=== PATIENT | female | born 1945 | race Caucasian/White ===

== ENCOUNTER 2021-02-25 16:49 | Emergency (ER) | payer MEDICARE, BC ==
[2021-02-25] MEDS ORDERED: Sodium Chloride 0.9% 10 ML Syringe FLUSH PRN (16:59)
[2021-02-25] MEDS: Albuterol/Ipratropium 3.0-0.5 MG/3 ML Neb Soln NEB ONE (17:00)
--- NOTE | 2021-02-25 17:08 | EDM.PDOC ---
ED HPI GENERAL MEDICAL PROBLEM - General Time Seen by Provider: 02/25/21 16:52 Source of Information: Reports: Patient - History of Present Illness INITIAL COMMENTS - FREE TEXT/NARRATIVE: Lorrie is a 75 y/o female who comes to the ER with SOB. She has long-standing COPD and over the course of the last 2 days she has been more SOB and coughing. Denies any fever or sputum production, but she does become increasingly SOB with exercise. No chest pain. She has used her Albuterol rescue inhaler x2 today but it has not really helped. She did have an appt tomorrow at the clinic, but did not feel she could wait. 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 Denies: Sputum Cardiovascular: Denies: Chest Pain GI/Abdominal: Reports: No Symptoms Genitourinary: Reports: No Symptoms Musculoskeletal: Reports: No Symptoms Skin: Reports: No Symptoms Neurological: Reports: No Symptoms Psychiatric: Reports: No Symptoms ED EXAM, GENERAL - Physical Exam Exam: See Below Exam Limited By: No Limitations General Appearance: Alert, WD/WN, Mild Distress (Elderly female, notable SOB, but able to answer questions for staff in 1-2 word sentences. Coached on pursed lip breathing.) Eye Exam: Bilateral Eye: PERRL Ears: Normal External Exam, Hearing Grossly Normal, Normal TMs Nose: Normal Inspection, Normal Mucosa Throat/Mouth: Normal Inspection, Normal Lips, Normal Teeth, Normal Voice Head: Atraumatic, Normocephalic Neck: Normal Inspection, Supple Respiratory/Chest: Rhonchi (throughout) Cardiovascular: Normal Peripheral Pulses, Regular Rate, Rhythm, No Murmur GI/Abdominal: Normal Bowel Sounds, Soft, Non-Tender (Female) Exam: Deferred Rectal (Female) Exam: Deferred Back Exam: Normal Inspection Extremities: Normal Inspection, Normal Range of Motion, No Pedal Edema, Normal Capillary Refill Neurological: Alert, Oriented, CN II-XII Intact, Normal Cognition Psychiatric: Normal Affect, Normal Mood Skin Exam: Warm, Dry, Intact, Normal Color Lymphatic: No Adenopathy #1 Interpretation EKG Date: 02/25/21 Time: 16:58 Rhythm: NSR Rate (Beats/Min): 93 Munson: Normal P-Wave: Present QRS: Normal ST-T: Normal QT: Normal Comparison: NA - No Prior EKG EKG Interpretation Comments: Normal Study Course - Vital Signs Text/Narrative:: 1651 The patient was seen by the VP [employer]. Labs, EKG, and CXR ordered. She was given a Duoneb and SoluMedrol 125mg IVP was given. 1709 Normal EKG noted. Patient already breathing easier with Duoneb going. 1819 CXR reviewed, no acute findings noted. CBC neg, CMP neg. LA=2.5, but doubt infectious process as patient afebrile, feeling better and all other labs neg. Tropo neg. She was given Prednison 40mg po x 1 dose here in the ER to cover here until she can chart picker the Medrol DOsePack tomorrow. Also will start her on prn Duonebs. Discharge instructions were reviewed and she left the ER in stable condition. - Orders/Labs/Meds Orders: Active Orders 24 hr Category Date Time Status Chest 1V Frontal [CR] Stat Exams 02/25/21 17:00 Ordered CULTURE BLOOD [BC] Stat Lab 02/25/21 17:18 Received LACTIC ACID [CHEM] Stat Lab 02/25/21 17:15 Received Sodium Chloride 0.9% [Saline Flush] Med 02/25/21 16:59 Active 10 ml FLUSH ASDIRECTED PRN Saline Lock Insert [OM.PC] Stat Oth 02/25/21 17:00 Ordered Medication Orders Sodium Chloride (Sodium Chloride 0.9% 10 Ml Syringe) 10 ml FLUSH ASDIRECTED PRN PRN Reason: Keep Vein Open Labs: Laboratory Tests 02/25/21 02/25/21 Range/Units 17:15 17:15 WBC 4.4 (4.0-10.0) x10^3/uL RBC 3.94 L (4.00-5.50) x10^6/uL Hgb 13.1 (12.0-16.0) g/dL Hct 38.8 (33.0-47.0) % MCV 98.5 H (78.0-93.0) fL MCH 33.2 H (26.0-32.0) pg MCHC 33.8 (32.0-36.0) g/dL RDW Coeff of Meagan 13.0 (10.0-15.0) % Plt Count 296 (130-400) x10^3/uL Neut % (Auto) 49.5 L (50.0-80.0) % Lymph % (Auto) 34.7 (25.0-50.0) % Shelby % (Auto) 9.0 (2.0-11.0) % Eos % (Auto) 6.3 H (0.0-4.0) % Baso % (Auto) 0.5 (0.2-1.2) % Sodium 143 (136-145) mmol/L Potassium 4.0 (3.5-5.1) mmol/L Chloride 107 (98-107) mmol/L Carbon Dioxide 23 (21-32) mmol/L Anion Gap 17.0 H (5-15) mmol/L BUN 8 (7-18) mg/dL Creatinine 0.7 (0.55-1.02) mg/dL Est Cr Clr Drug Dosing TNP Estimated GFR (MDRD) > 60 Glucose 72 L (74-106) mg/dL Calcium 8.8 (8.5-10.1) mg/dL Corrected Calcium 8.96 (8.5-10.1) mg/dL Magnesium 1.9 (1.8-2.4) mg/dL Total Bilirubin 0.3 (0.2-1.0) mg/dL AST 25 (15-37) U/L ALT 37 (14-59) U/L Alkaline Phosphatase 56 (46-116) U/L Lactate Dehydrogenase 199 (81-234) U/L Troponin I High Sens < 4 (<=51) ng/L C-Reactive Protein < 0.2 (<=0.9) mg/dL Total Protein 7.3 (6.4-8.2) g/dL Albumin 3.8 (3.4-5.0) g/dL Globulin 3.5 Albumin/Globulin Ratio 1.09 Meds: Medications Generic Name Dose Route Start Last Admin Trade Name Freq PRN Reason Stop Dose Admin Sodium Chloride 10 ml 02/25/21 16:59 Sodium Chloride 0.9% 10 Ml Syringe FLUSH ASDIRECTED PRN Keep Vein Open Discontinued Medications Generic Name Dose Route Start Last Admin Trade Name Freq PRN Reason Stop Dose Admin Albuterol/Ipratropium 3 ml 02/25/21 17:01 02/25/21 17:00 Albuterol/Ipratropium 3.0-0.5 Mg/3 Ml Neb Soln NEB 02/25/21 17:02 3 ml ONETIME ONE Administration Methylprednisolone Sodium Succinate 125 mg 02/25/21 17:01 02/25/21 17:25 Methylprednisolone Sodium Succinate 125 Mg/2 Ml Sdv IVPUSH 02/25/21 17:02 125 mg ONETIME ONE Administration Departure - Departure Time of Disposition: 18:05 Disposition: Home, Self-Care 01 Condition: Good Clinical Impression: COPD exacerbation, Lung nodules, Former smoker, stopped smoking in distant past - Discharge Information *PRESCRIPTION DRUG MONITORING PROGRAM REVIEWED*: Not Applicable *COPY OF PRESCRIPTION DRUG MONITORING REPORT IN PATIENT LEX: Not Applicable Prescriptions: Albuterol/Ipratropium [DuoNeb 3.0-0.5 MG/3 ML] 3 ml .XX Q6HR PRN #75 neb PRN Reason: Dyspnea methylPREDNISolone [Medrol Dose Pack] 4 mg PO ASDIRECTED #21 dospk Instructions: Chronic Obstructive Pulmonary Disease Exacerbation, [id number], Pulmonary Nodule, [id number], COPD and Physical Activity Referrals: Sendy Jerome MD [Primary Care Provider] - - My Orders Last 24 Hours: My Active Orders 02/25/21 16:59 Sodium Chloride 0.9% [Saline Flush] 10 ml FLUSH ASDIRECTED PRN 02/25/21 17:00 Chest 1V Frontal [CR] Stat Saline Lock Insert [OM.PC] Stat 02/25/21 17:15 LACTIC ACID [CHEM] Stat 02/25/21 17:18 CULTURE BLOOD [BC] Stat - Assessment/Plan Last 24 Hours: My Active Orders 02/25/21 16:59 Sodium Chloride 0.9% [Saline Flush] 10 ml FLUSH ASDIRECTED PRN 02/25/21 17:00 Chest 1V Frontal [CR] Stat Saline Lock Insert [OM.PC] Stat 02/25/21 17:15 LACTIC ACID [CHEM] Stat 02/25/21 17:18 CULTURE BLOOD [BC] Stat Assessment:: 1)COPD Exacerbation 2)Lung Nodules] 3)Hx Tobacco Use in Past Plan: -Continue Serevent inhaler as prescribed -Use your Albuterol inhaler every 3-4 hours as needed while you are having an exacerbation, then tomorrow you may chart picker the nebulizer and Duonebs -Duoneb nebulizers 1 ampule via neb every 6 hours as needed for increased Shortness of breath #75 (Rx) -Rx given for nebulizer machine. You will need to pick this up tomorrow at the pharmacy. -Medrol Dose Pack 4mg oral as directed #21 (Rx) Start this tomorrow. -Follow up with Dr Jerome for recheck and to discuss further medications management of your COPD symptoms -Return to the ER as needed for any concerns
[2021-02-25] MEDS: methylPREDNISolone Sodium Succinate 125 MG/2 ML SDV IVPUSH ONE (17:25)
[2021-02-25 17:48] LABS: CHLORIDE,CL 107 mmol/L (98-107); SODIUM,NA 143 mmol/L (136-145)
[2021-02-25] MEDS: predniSONE 20 MG Tab PO ONE (18:07)
--- NOTE | 2021-02-25 18:19 | CR ---
[id number] RAD/RAD Chest PA or AP 1V EXAM: FRONTAL CHEST INDICATION: SHORT OF BREATH. COMPARISON: October 01, 2020 CT. DISCUSSION: Right greater than left apical parenchymal scarring. No definite acute infiltrates. Borderline heart size without evidence of edema. No effusions. IMPRESSION: 1. No acute findings. Hesham Abel MD 02/25/21 1296 Thank you for allowing us to participate in the care of your patient.
[2021-02-25 18:31] VITALS: BP 154/86; PULSE 82
== END 2021-02-25 18:30 | disposition home or self-care (01) ==
LOC: VM.ED 16:49
DX: J44.1 Chronic obstructive pulmonary disease with (acute) exacerbation (principal); R91.1 Solitary pulmonary nodule; Z87.891 Personal history of nicotine dependence
CPT/HCPCS: 36415; 71045; 80053; 83605; 83615; 83735; 84484; 85025; 86140; 87040; 93005; 93010; 96374; 99284; 99285-25; J2930; J7512; J7620-GY

== ENCOUNTER 2021-03-17 12:36 | Inpatient (IN) | payer MEDICARE, BC ==
[2021-03-17] MEDS: Albuterol/Ipratropium 3.0-0.5 MG/3 ML Neb Soln NEB SCH ×4 (13:23→22:26)
[2021-03-17] MEDS ORDERED: Ondansetron 4 MG Tab.DIS PO PRN (13:39)
[2021-03-17] MEDS ORDERED: Acetaminophen 325 MG Tab PO PRN (13:39)
[2021-03-17] MEDS ORDERED: NICOTINE POLACRILEX 2 MG PO PRN (13:41)
[2021-03-17] MEDS ORDERED: GUM PO PRN (13:41)
--- NOTE | 2021-03-17 13:53 | PCM.HP.2 ---
H&P History of Present Illness - General Date of Service: 03/17/21 Admit Problem/Dx: Admission Diagnosis/Problem Admission Diagnosis/Problem COPD, Moderate chronic obstructive pulmonary disease - History of Present Illness Initial Comments - Free Text/Narative: Lorrie Gimenez is a 75yr female who presented to the clinic today forCOPD exacerbation.Was in earlier this month for COPD exacerbation; followed up with me in the clinic one day after being seen in the ER for this. She did her dose of the steroids and did feel better for quite a few days however symptoms have worsened since then. She continues on her Serevent discus BID. She has been using her DuoNeb and albuterol 3-4 times a day. Notes improvement for an hour or 2 after using the albuterol however symptoms quickly return. Over the last 2 days had noted increased dyspnea on exertion. She'll get into coughing spells that will leave her feeling like she would be unable to take in the next breath. So far on top of her COPD regimen she has been using hot water with honey, Tylenol, and cough drops for her symptom control. She feels exhausted, has been unable to sleep due to the severe SOB and coughing. Clinic evaluation included a CBC with slightly low WBC and neutrophils, normal BMP, and a normal appearing CXR. Decision was made to admit to the hospital for mod-severe COPD exacerbation given her worsening clinical picture. Patient was ok with this plan. - Related Data Allergies/Adverse Reactions: Allergies Allergy/AdvReac Type Severity Reaction Status Date / Time No Known Drug Allergies Allergy Unknown Other Verified 03/17/21 13:19 seasonal allergies Allergy Unknown Other Uncoded 03/17/21 13:22 Home Medications: Home Meds Albuterol Sulfate [Albuterol Sulfate HFA] 1 - 2 inh PO Q4H PRN 03/17/21 [History] Albuterol/Ipratropium [DuoNeb 3.0-0.5 MG/3 ML] 3 ml NEB Q4HR 03/17/21 [History] Azithromycin 500 mg PO DAILY 03/17/21 [History] Collagen, Hydrolysate (Bovine) [Collagen Hydrolysate] 1 scoop PO DAILY 03/17/21 [History] Nicotine Polacrilex [Nicotine Gum] 2 mg PO Q1H PRN 03/17/21 [History] Salmeterol Xinafoate [Serevent Diskus] 1 puff INH BID 03/17/21 [History] methylPREDNISolone [Medrol Dose Pack] 0 mg PO ASDIRECTED 03/17/21 [History] Past Medical History Respiratory History: Reports: COPD Other OB/BYN History: tubal ligation Other Musculoskeletal History: broken right humerus in high school Social & Family History - Family History Cardiac: Reports: Hypertension (mom) Other Respiratory Family Hisory: laryngeal cancer - father Endocrine/Metabolic: Reports: Diabetes, type II (mom), Hypothyroidism (mom) - Tobacco Use Tobacco Use Status *Q: Former Tobacco User (distant history) - Living Situation & Occupation Living situation: Reports: H&P Review of Systems - Review of Systems: Review Of Systems: See Below General: Reports: Fatigue HEENT: Reports: No Symptoms Pulmonary: Reports: Shortness of Breath, Wheezing, Cough Cardiovascular: Reports: No Symptoms Gastrointestinal: Reports: No Symptoms Genitourinary: Reports: No Symptoms Musculoskeletal: Reports: No Symptoms Skin: Reports: No Symptoms Psychiatric: Reports: No Symptoms Neurological: Reports: No Symptoms Hematologic/Lymphatic: Reports: No Symptoms Immunologic: Reports: No Symptoms Exam - Exam Exam: See Below - Vital Signs Vital Signs: Last Vital Signs Temp 97.4 F 03/17/21 12:40 Pulse 103 H 03/17/21 12:40 Resp 24 H 03/17/21 12:40 BP 171/71 H 03/17/21 12:40 Pulse Ox 93 L 03/17/21 12:40 Weight: 188 lb 3.2 oz - Exam General: Alert, Oriented, Mild Distress HEENT: Conjunctiva Clear, EOMI Neck: Supple, Trachea Midline Lungs: Rhonchi, Wheezing Cardiovascular: Regular Rate, Regular Rhythm GI/Abdominal Exam: Normal Bowel Sounds, Soft, Non-Tender Extremities: Normal Inspection, No Pedal Edema Skin: Warm, Dry, Intact Neuro Extensive - Mental Status: Alert, Oriented x3 Psychiatric: Alert, Anxious Sepsis Event Note - Focused Exam Vital Signs: Vital Signs Temp Pulse Resp BP Pulse Ox 03/17/21 12:40 97.4 F 103 H 24 H 171/71 H 93 L - Problem List (1) COPD exacerbation SNOMED Code(s): 376911587 ICD Code: J44.1 - CHRONIC OBSTRUCTIVE PULMONARY DISEASE W (ACUTE) EXACERBATION Status: Acute Current Visit: No Problem List Initiated/Reviewed/Updated: Yes Orders Last 24hrs: Active Orders 24 hr Category Date Time Status Admission Status [Patient Status] [ADT] Routine ADT 03/17/21 12:40 Active Dietary Supplements [RC] BIDMEALS Care 03/17/21 13:46 Ordered Oxygen Therapy [RC] PRN Care 03/17/21 13:39 Ordered Pulse Oximetry [RC] CONTINUOUS Care 03/17/21 13:39 Ordered RT Aerosol Therapy [RC] ASDIRECTED Care 03/17/21 12:45 Active VTE/DVT Education [RC] PER UNIT ROUTINE Care 03/17/21 13:39 Ordered Vital Signs [RC] Q4H Care 03/17/21 13:39 Ordered Respiratory Care Assess and Treatment [CONS] Routine Cons 03/17/21 13:39 Ordered Regular Diet [DIET] Diet 03/17/21 Dinner Ordered BASIC METABOLIC PANEL,BMP [CHEM] AM Lab 03/18/21 05:11 Ordered CBC WITH AUTO DIFF [HEME] AM Lab 03/18/21 05:11 Ordered CORONAVIRUS COVID-19 RAPID [MOLEC] Stat Lab 03/17/21 12:59 Ordered CULTURE SPUTUM + SMEAR [RM] Stat Lab 03/17/21 13:39 Ordered Acetaminophen [TylenoL] Med 03/17/21 13:39 Ordered 650 mg PO Q4H PRN Albuterol/Ipratropium [DuoNeb 3.0-0.5 MG/3 ML] Med 03/17/21 13:15 Active 3 ml NEB Q4HRRT Azithromycin [Zithromax] 500 mg Med 03/17/21 14:00 Ordered Sodium Chloride 0.9% [Normal Saline (AdvBag)] 250 ml IV DAILY Enoxaparin [Lovenox] Med 03/18/21 08:00 Ordered 40 mg SUBCUT DAILY Nicotine Polacrilex Med 03/17/21 13:41 Ordered 2 mg PO Q1H PRN Ondansetron [Zofran ODT] Med 03/17/21 13:39 Ordered 4 mg PO Q4H PRN Salmeterol Xinafoate [Serevent Diskus] Med 03/17/21 20:00 Ordered 1 puff INH BID Sodium Chloride 0.9% [Saline Flush] Med 03/17/21 12:53 Active 10 ml FLUSH ASDIRECTED PRN cefTRIAXone [Rocephin] Med 03/17/21 14:00 Ordered 1 gm IVPUSH DAILY methylPREDNISolone Sod Succ [Solu-MEDROL] Med 03/17/21 13:45 Ordered 60 mg IVPUSH Q8H Peripheral IV Insertion Adult [OM.PC] Routine Oth 03/17/21 12:53 Ordered Resuscitation Status Routine Resus Stat 03/17/21 13:39 Ordered Medication Orders Acetaminophen (Acetaminophen 325 Mg Tab) 650 mg PO Q4H PRN PRN Reason: Pain (Mild 1-3)/fever Albuterol/Ipratropium (Albuterol/Ipratropium 3.0-0.5 Mg/3 Ml Neb Soln) 3 ml NEB Q4HRRT DRAYN Last Admin: 03/17/21 13:23 Dose: 3 ml Documented by: GAVIN Ceftriaxone Sodium (Ceftriaxone 1 Gm Vial) 1 gm IVPUSH DAILY DARYN Enoxaparin Sodium (Enoxaparin 40 Mg/0.4 Ml Syringe) 40 mg SUBCUT DAILY DARYN Azithromycin 500 mg/ Sodium (Chloride) 250 mls @ 250 mls/hr IV DAILY DARYN Methylprednisolone Sodium Succinate (Methylprednisolone Sodium Succinate 40 Mg/1 Ml Sdv) 60 mg IVPUSH Q8H DARYN Non-Formulary Medication (Nicotine Polacrilex) 2 mg PO Q1H PRN PRN Reason: smoking cessation Non-Formulary Medication (Salmeterol Xinafoate [Serevent Diskus]) 1 puff INH BID DARYN Ondansetron HCl (Ondansetron 4 Mg Tab.Dis) 4 mg PO Q4H PRN PRN Reason: nausea, able to take PO Sodium Chloride (Sodium Chloride 0.9% 10 Ml Syringe) 10 ml FLUSH ASDIRECTED PRN PRN Reason: Keep Vein Open Assessment/Plan Comment:: Lorrie is a 75yoF who is being admitted for COPD exacerbation COPD exacerbation - 1 month of worsening symptoms with acute worsening the last few days Plan: - Continue home Serevent - Duonebs q4hr scheduled - Rocephin and Azithromycin for 5 days - RT consult - Pulse ox and O2 as needed - Sputum Cx - Repeat lab in the am Diet: Regular DVT: Lovenox SQ CODE: FULL Disposition: Patient admitted on acute care for treatment of COPD exacerbation. If improving over 48-72 will discharge home with oral steroids/antibiotics to finish the course. - Mortality Measure Prognosis:: Good
[2021-03-17] MEDS: cefTRIAXone 1 GM Vial IVPUSH SCH (14:04)
[2021-03-17] MEDS: methylPREDNISolone Sodium Succinate 40 MG/1 ML SDV IVPUSH SCH ×2 (14:07→22:26)
[2021-03-17] MEDS: Azithromycin 500 MG in Sodium Chloride 0.9% 250 ML IV SCH (14:11)
[2021-03-17] MEDS: Arformoterol 15 MCG/2 ML Neb Soln NEB SCH (19:41)
[2021-03-17] MEDS ORDERED: [UNRECOGNIZED DRUG - OTHER] INH SCH (20:00)
[2021-03-17] MEDS: Sodium Chloride 0.9% 10 ML Syringe FLUSH PRN (22:33)
[2021-03-18] MEDS: Albuterol/Ipratropium 3.0-0.5 MG/3 ML Neb Soln NEB SCH ×6 (02:46→22:27)
[2021-03-18] MEDS: Arformoterol 15 MCG/2 ML Neb Soln NEB SCH ×2 (06:13→19:02)
[2021-03-18] MEDS: methylPREDNISolone Sodium Succinate 40 MG/1 ML SDV IVPUSH SCH ×3 (06:14→22:28)
[2021-03-18] MEDS: Sodium Chloride 0.9% 10 ML Syringe FLUSH PRN ×2 (06:14→22:27)
[2021-03-18 07:42] LABS: CHLORIDE,CL 108 mmol/L (98-107); SODIUM,NA 146 mmol/L (136-145)
[2021-03-18 07:43] LABS: ANION GAP 18.8 mmol/L (5-15)
--- NOTE | 2021-03-18 10:56 | PCM.PN ---
- General Info Date of Service: 03/18/21 Admission Dx/Problem (Free Text): Admission Diagnosis/Problem Admission Diagnosis/Problem COPD, Moderate chronic obstructive pulmonary disease Subjective Update: Lorrie Gimenez is a 75yr female who is HD #2 forCOPD exacerbation.She was into the ER for an exacerbation in early February; she had some improvement after 1 week of steroids however symptoms slowly started to worsen again. 2 days prior to presentation she had a significant increase in dyspnea on exertion and cough. Regiment prior to admission included Serevent discuss BID with albuterol/duonebs as needed. She did well overnight with with improvement of her coughing attacks and severe SOB. She has been up and about the room plenty. We did discuss plan of care with her daughter during our visit today and I do think that we could consider addition of more baseline control medication while she is here. Daughter does question referral to specialist which we noted is not off the table but I would like to get better baseline control (maximize my efforts) but will have a short- leash to refer on if not improving. They are agreeable and understanding. - Review of Systems General: Reports: Fatigue (improved) HEENT: Reports: No Symptoms Pulmonary: Reports: Shortness of Breath, Cough, Wheezing (all improving) Cardiovascular: Reports: No Symptoms Gastrointestinal: Reports: No Symptoms Genitourinary: Reports: No Symptoms Skin: Reports: No Symptoms Neurological: Reports: No Symptoms Psychiatric: Reports: No Symptoms - Patient Data Vitals - Most Recent: Last Vital Signs Temp 98.1 F 03/18/21 10:00 Pulse 108 H 03/18/21 10:00 Resp 20 03/18/21 10:00 BP 143/84 H 03/18/21 10:00 Pulse Ox 91 L 03/18/21 10:00 Weight - Most Recent: 188 lb 3.2 oz I&O - Last 24 Hours: Intake & Output 03/17/21 03/18/21 03/18/21 22:59 06:59 14:59 Intake Total 460 Balance 460 Lab Results Last 24 Hours: Laboratory Results - last 24 hr 03/17/21 03/18/21 03/18/21 Range/Units 14:15 06:48 06:48 WBC 3.7 L (4.0-10.0) x10^3/uL RBC 3.48 L (4.00-5.50) x10^6/uL Hgb 11.6 L D (12.0-16.0) g/dL Hct 35.0 (33.0-47.0) % MCV 100.6 H (78.0-93.0) fL MCH 33.3 H (26.0-32.0) pg MCHC 33.1 (32.0-36.0) g/dL RDW Coeff of [place]agan 14.0 (10.0-15.0) % Plt Count 270 (130-400) x10^3/uL Neut % (Auto) 85.6 H (50.0-80.0) % Lymph % (Auto) 12.8 L (25.0-50.0) % [place] % (Auto) 1.6 L (2.0-11.0) % Eos % (Auto) 0.0 (0.0-4.0) % Baso % (Auto) 0.0 L (0.2-1.2) % Sodium 146 H (136-145) mmol/L Potassium 3.8 (3.5-5.1) mmol/L Chloride 108 H (98-107) mmol/L Carbon Dioxide 23 (21-32) mmol/L Anion Gap 18.8 H (5-15) mmol/L BUN 9 (7-18) mg/dL Creatinine 0.9 (0.55-1.02) mg/dL Est Cr Clr Drug Dosing 53.33 mL/min Estimated GFR (MDRD) > 60 Glucose 146 H (70-99) mg/dL Calcium 9.1 (8.5-10.1) mg/dL SARS CoV-2 RNA Rapid WALLACE Negative (NEGATIVE) Med Orders - Current: Current Medications Acetaminophen (Acetaminophen 325 Mg Tab) 650 mg PO Q4H PRN PRN Reason: Pain (Mild 1-3)/fever Albuterol/Ipratropium (Albuterol/Ipratropium 3.0-0.5 Mg/3 Ml Neb Soln) 3 ml NEB Q4HRRT [facility] Last Admin: 03/18/21 06:13 Dose: 3 ml Documented by: Arformoterol Tartrate (Arformoterol 15 Mcg/2 Ml Neb Soln) 15 mcg NEB BIDRT [facility] Last Admin: 03/18/21 06:13 Dose: 15 mcg Documented by: Ceftriaxone Sodium (Ceftriaxone 1 Gm Vial) 1 gm IVPUSH Q24H [facility] Last Admin: 03/17/21 14:04 Dose: 1 gm Documented by: Enoxaparin Sodium (Enoxaparin 40 Mg/0.4 Ml Syringe) 40 mg SUBCUT DAILY [facility] Azithromycin 500 mg/ Sodium (Chloride) 250 mls @ 250 mls/hr IV Q24H [facility] Last Admin: 03/17/21 14:11 Dose: 250 mls/hr Documented by: Methylprednisolone Sodium Succinate (Methylprednisolone Sodium Succinate 40 Mg/1 Ml Sdv) 60 mg IVPUSH Q8H [facility] Last Admin: 03/18/21 06:14 Dose: 60 mg Documented by: Nicotine Polacrilex 2 Mg Gum (Own Supply ) 2 mg PO Q1H PRN PRN Reason: smoking cessation Ondansetron HCl (Ondansetron 4 Mg Tab.Dis) 4 mg PO Q4H PRN PRN Reason: nausea, able to take PO Sodium Chloride (Sodium Chloride 0.9% 10 Ml Syringe) 10 ml FLUSH ASDIRECTED PRN PRN Reason: Keep Vein Open Last Admin: 03/18/21 06:14 Dose: 10 ml Documented by: Tiotropium [place] (Tiotropium [place] 4 Gm Inhalation [place] (2.5mcg/1 Dose; 10 Doses)) 0 gm INH DAILY [facility] - Exam General: Alert, Oriented HEENT: EOMI, Mucous Membr. Moist/[place] Neck: Supple Lungs: Decreased Breath Sounds (breath sounds quite improved from yesterday, can hear throughout all areas now, wheezing improved as well), Wheezing Cardiovascular: Regular Rate, Regular Rhythm GI/Abdominal Exam: Normal Bowel Sounds, Soft, Non-Tender Extremities: Normal Inspection Skin: Warm, Dry Psy/Mental Status: Alert, Normal Affect, Normal Mood - Patient Data Lab Results Last 24 hrs: Laboratory Results - last 24 hr 03/17/21 03/18/21 03/18/21 Range/Units 14:15 06:48 06:48 WBC 3.7 L (4.0-10.0) x10^3/uL RBC 3.48 L (4.00-5.50) x10^6/uL Hgb 11.6 L D (12.0-16.0) g/dL Hct 35.0 (33.0-47.0) % MCV 100.6 H (78.0-93.0) fL MCH 33.3 H (26.0-32.0) pg MCHC 33.1 (32.0-36.0) g/dL RDW Coeff of [place]agan 14.0 (10.0-15.0) % Plt Count 270 (130-400) x10^3/uL Neut % (Auto) 85.6 H (50.0-80.0) % Lymph % (Auto) 12.8 L (25.0-50.0) % [place] % (Auto) 1.6 L (2.0-11.0) % Eos % (Auto) 0.0 (0.0-4.0) % Baso % (Auto) 0.0 L (0.2-1.2) % Sodium 146 H (136-145) mmol/L Potassium 3.8 (3.5-5.1) mmol/L Chloride 108 H (98-107) mmol/L Carbon Dioxide 23 (21-32) mmol/L Anion Gap 18.8 H (5-15) mmol/L BUN 9 (7-18) mg/dL Creatinine 0.9 (0.55-1.02) mg/dL Est Cr Clr Drug Dosing 53.33 mL/min Estimated GFR (MDRD) > 60 Glucose 146 H (70-99) mg/dL Calcium 9.1 (8.5-10.1) mg/dL SARS CoV-2 RNA Rapid [place]ALLACE Negative (NEGATIVE) Result Diagrams: 03/18/21 06:48 03/18/21 06:48 Sepsis Event Note - Evaluation Sepsis Screening Result: No Definite Risk - Focused Exam Vital Signs: Vital Signs Temp Pulse Resp BP Pulse Ox 03/18/21 10:00 98.1 F 108 H 20 143/84 H 91 L 03/18/21 07:00 97.6 F 104 H 20 120/76 90 L 03/18/21 02:41 98.7 F 99 19 131/69 91 L - Problem List & Annotations (1) COPD exacerbation SNOMED Code(s): 196269123 Code(s): J44.1 - CHRONIC OBSTRUCTIVE PULMONARY DISEASE W (ACUTE) EXACERBATION Status: Acute Current Visit: No - Problem List Review Problem List Initiated/Reviewed/Updated: Yes - My Orders Last 24 Hours: My Active Orders 03/17/21 12:40 Admission Status [Patient Status] [ADT] Routine 03/17/21 12:45 RT Aerosol Therapy [RC] 03,07,11,15,19,20,23 03/17/21 12:53 Sodium Chloride 0.9% [Saline Flush] 10 ml FLUSH ASDIRECTED PRN Peripheral IV Insertion Adult [OM.PC] Routine 03/17/21 13:15 Albuterol/Ipratropium [DuoNeb 3.0-0.5 MG/3 ML] 3 ml NEB Q4HRRT 03/17/21 13:39 Oxygen Therapy [RC] .PRN VTE/DVT Education [RC] .PRN Vital Signs [RC] 02,06,10,14,18,22 Respiratory Care Assess and Treatment [CONS] Routine CULTURE SPUTUM + SMEAR [RM] Stat Acetaminophen [TylenoL] 650 mg PO Q4H PRN Ondansetron [Zofran ODT] 4 mg PO Q4H PRN Resuscitation Status Routine 03/17/21 13:41 Nicotine Polacrilex 2 mg PO Q1H PRN 03/17/21 13:46 Dietary Supplements [RC] 0730,1730 03/17/21 13:56 RT Aerosol Therapy [RC] ASDIRECTED 03/17/21 14:00 Azithromycin [Zithromax] 500 mg Sodium Chloride 0.9% [Normal Saline (AdvBag)] 250 ml IV Q24H cefTRIAXone [Rocephin] 1 gm IVPUSH Q24H methylPREDNISolone Sod Succ [Solu-MEDROL] 60 mg IVPUSH Q8H 03/17/21 Dinner Regular Diet [DIET] 03/17/21 20:00 Arformoterol [Brovana] 15 mcg NEB BIDRT 03/18/21 08:00 Enoxaparin [Lovenox] 40 mg SUBCUT DAILY 03/18/21 10:15 Tiotropium [place] [Spiriva Respimat] 0 gm INH DAILY 03/19/21 07:00 BASIC METABOLIC PANEL,BMP [CHEM] Routine CBC W/O DIFF,HEMOGRAM [HEME] Routine - Plan Plan:: Lorrie is a 75yoF who is HD #2 for COPD exacerbation COPD exacerbation - 1 month of worsening symptoms with acute worsening the last few days Plan: - Continue home Serevent (formulary equivolent) - Addition of montelukast today - Duonebs q4hr scheduled - Rocephin and Azithromycin for 5 days - RT consult - Pulse ox and O2 as needed - Sputum Cx - Repeat lab in the am Diet: Regular DVT: Lovenox SQ CODE: FULL Disposition: Patient with good symptom improvement over the last 24 hours. Will continue to monitor. Anticipate 1-2 more days of inpatient treatment.
[2021-03-18] MEDS: Tiotropium Bromide 4 GM Inhalation Spray (2.5mcg/1 dose; 10 doses) INH SCH (11:39)
[2021-03-18] MEDS: Enoxaparin 40 MG/0.4 ML Syringe SUBCUT SCH (11:40)
[2021-03-18] MEDS: cefTRIAXone 1 GM Vial IVPUSH SCH (14:51)
[2021-03-18] MEDS: Azithromycin 500 MG in Sodium Chloride 0.9% 250 ML IV SCH (14:52)
[2021-03-19] MEDS: Albuterol/Ipratropium 3.0-0.5 MG/3 ML Neb Soln NEB SCH ×3 (02:55→11:13)
[2021-03-19] MEDS: Sodium Chloride 0.9% 10 ML Syringe FLUSH PRN (05:44)
[2021-03-19] MEDS: methylPREDNISolone Sodium Succinate 40 MG/1 ML SDV IVPUSH SCH (05:48)
[2021-03-19] MEDS: Arformoterol 15 MCG/2 ML Neb Soln NEB SCH (06:47)
[2021-03-19 07:14] LABS: CHLORIDE,CL 108 mmol/L (98-107); SODIUM,NA 143 mmol/L (136-145)
[2021-03-19] MEDS: Enoxaparin 40 MG/0.4 ML Syringe SUBCUT SCH (07:56)
[2021-03-19] MEDS: Tiotropium Bromide 4 GM Inhalation Spray (2.5mcg/1 dose; 10 doses) INH SCH (07:56)
[2021-03-19 10:18] VITALS: BP 124/70; PULSE 105
--- NOTE | 2021-03-19 12:32 | PCM.DCSUM1 ---
Discharge Summary - Hospital Course Free Text/Narrative:: Lorrie Gimenez is a 75yr female who was admitted on 03/17/21 forCOPD exacerbation.She was into the ER for an exacerbation in early February; she had some improvement after 1 week of steroids however symptoms slowly started to worsen again. 2 days prior to presentation she had a significant increase in dyspnea on exertion and cough. Regiment prior to admission included Serevent discuss BID with albuterol/duonebs as needed. She has done well over the last 48 hours with significant improvement in her respiratory status. Still having some coughing fits with extrenuous talking but is able to control these within 5-10 seconds and isn't left feeling like she can't get her breath any longer. medication changes during this hospital stay included addition of spiriva. She has been on IV antibiotics and steroids as is typical for the exacerbation. Given clinical improvement decision was made to discharge home for continued outpatient therapy. New meds/Discharge instructions: - Continue Spiriva daily indefinitely in conjunction with Serevent BID and PRN albuterol/duonebs - Ceftin 250mg BID for 3 more days - Azithromycin 500mg daily for 5 more days - Medrol Dose pack until finished *Meds all prescribed through [facility] *First dose of each tomorrow (03/20/21) as steroids, spiriva, and antibiotics already administered today We will have her follow-up in the clinic in 2 weeks for recheck on her symptoms. Consideration given for pulmonary referral. - Discharge Data Discharge Date: 03/19/21 Discharge Disposition: Home, Self-Care 01 Condition: Good - Referral to Home Health Primary Care Physician: Sendy Jerome MD - Discharge Diagnosis/Problem(s) (1) COPD exacerbation SNOMED Code(s): 260182867 ICD Code: J44.1 - CHRONIC OBSTRUCTIVE PULMONARY DISEASE W (ACUTE) EXACERBATION Status: Acute Current Visit: No - Patient Summary/Data Consults: Consultations 03/17/21 13:39 Respiratory Care Assess and Treatment [CONS] Routine - Patient Instructions Diet: Regular Diet as Tolerated Activity: As Tolerated Driving: May Drive Today - Discharge Plan *PRESCRIPTION DRUG MONITORING PROGRAM REVIEWED*: Not Applicable *COPY OF PRESCRIPTION DRUG MONITORING REPORT IN PATIENT LEX: Not Applicable Home Medications: Home Meds Albuterol Sulfate [Albuterol Sulfate HFA] 1 - 2 inh PO Q4H PRN 03/17/21 [History] Albuterol/Ipratropium [DuoNeb 3.0-0.5 MG/3 ML] 3 ml NEB Q4HR 03/17/21 [History] Collagen, Hydrolysate (Bovine) [Collagen Hydrolysate] 1 scoop PO DAILY 03/17/21 [History] Nicotine Polacrilex [Nicotine Gum] 2 mg PO Q1H PRN 03/17/21 [History] Salmeterol Xinafoate [Serevent Diskus] 1 puff INH BID 03/17/21 [History] methylPREDNISolone [Medrol Dose Pack] 0 mg PO ASDIRECTED 03/17/21 [History] Azithromycin 500 mg PO DAILY 5 Days #0 03/19/21 [Rx] Cefuroxime [Ceftin] 250 mg PO BID 3 Days #6 tablet 03/19/21 [Rx] Tiotropium [place] [Spiriva Respimat] 0 gm INH DAILY inhaler 03/19/21 [Rx] - Discharge Summary/Plan Comment DC Time >30 min.: No Discharge Summary/Plan Comment: COPD exacerbation - Continue Spiriva daily indefinitely in conjunction with Serevent BID and PRN albuterol/duonebs - Ceftin 250mg 2 times a day for 3 days - Azithromycin 500mg daily for 5 more days - Medrol Dose pack until finished *Meds all prescribed through [facility] *First dose of each tomorrow (03/20/21) as steroids, spiriva, and antibiotics already administered today - General Info Admission Dx/Problem (Free Text: Admission Diagnosis/Problem Admission Diagnosis/Problem COPD, Moderate chronic obstructive pulmonary disease - Review of Systems General: Reports: Fatigue HEENT: Reports: No Symptoms Pulmonary: Reports: Cough (only with excessive talking, SOB and wheezing si gnificantly improved) Cardiovascular: Reports: No Symptoms Gastrointestinal: Reports: No Symptoms Genitourinary: Reports: No Symptoms Musculoskeletal: Reports: No Symptoms Neurological: Reports: No Symptoms Psychiatric: Reports: No Symptoms - Patient Data Vitals - Most Recent: Last Vital Signs Temp 98.2 F 03/19/21 10:00 Pulse 105 H 03/19/21 10:00 Resp 20 03/19/21 10:00 BP 124/70 03/19/21 10:00 Pulse Ox 91 L 03/19/21 10:00 Weight - Most Recent: 188 lb 3.2 oz I&O - Last 24 hours: Intake & Output 03/18/21 03/19/21 03/19/21 22:59 06:59 14:59 Intake Total 360 300 500 Output Total 200 800 Balance 160 -500 500 Lab Results - Last 24 hrs: Laboratory Results - last 24 hr 03/19/21 03/19/21 Range/Units 06:18 06:18 WBC 9.5 (4.0-10.0) x10^3/uL RBC 3.29 L (4.00-5.50) x10^6/uL Hgb 11.0 L (12.0-16.0) g/dL Hct 33.3 (33.0-47.0) % MCV 101.2 H (78.0-93.0) fL MCH 33.4 H (26.0-32.0) pg MCHC 33.0 (32.0-36.0) g/dL RDW Coeff of Meagan 14.5 (10.0-15.0) % Plt Count 307 (130-400) x10^3/uL Sodium 143 (136-145) mmol/L Potassium 4.0 (3.5-5.1) mmol/L Chloride 108 H (98-107) mmol/L Carbon Dioxide 24 (21-32) mmol/L Anion Gap 15.0 (5-15) mmol/L BUN 14 (7-18) mg/dL Creatinine 0.8 (0.55-1.02) mg/dL Est Cr Clr Drug Dosing 60.00 mL/min Estimated GFR (MDRD) > 60 Glucose 138 H (70-99) mg/dL Calcium 8.6 (8.5-10.1) mg/dL Med Orders - Current: Current Medications Acetaminophen (Acetaminophen 325 Mg Tab) 650 mg PO Q4H PRN PRN Reason: Pain (Mild 1-3)/fever Albuterol/Ipratropium (Albuterol/Ipratropium 3.0-0.5 Mg/3 Ml Neb Soln) 3 ml NEB Q4HRRT [facility] Last Admin: 03/19/21 11:13 Dose: 3 ml Documented by: Arformoterol Tartrate (Arformoterol 15 Mcg/2 Ml Neb Soln) 15 mcg NEB BIDRT [facility] Last Admin: 03/19/21 06:47 Dose: 15 mcg Documented by: Ceftriaxone Sodium (Ceftriaxone 1 Gm Vial) 1 gm IVPUSH Q24H [facility] Last Admin: 03/18/21 14:51 Dose: 1 gm Documented by: Enoxaparin Sodium (Enoxaparin 40 Mg/0.4 Ml Syringe) 40 mg SUBCUT DAILY [facility] Last Admin: 03/19/21 07:56 Dose: 40 mg Documented by: Azithromycin 500 mg/ Sodium (Chloride) 250 mls @ 250 mls/hr IV Q24H [facility] Last Admin: 03/18/21 14:52 Dose: 250 mls/hr Documented by: Methylprednisolone Sodium Succinate (Methylprednisolone Sodium Succinate 40 Mg/1 Ml Sdv) 60 mg IVPUSH Q8H [facility] Last Admin: 03/19/21 05:48 Dose: 60 mg Documented by: Nicotine Polacrilex 2 Mg Gum (Own Supply ) 2 mg PO Q1H PRN PRN Reason: smoking cessation Ondansetron HCl (Ondansetron 4 Mg Tab.Dis) 4 mg PO Q4H PRN PRN Reason: nausea, able to take PO Sodium Chloride (Sodium Chloride 0.9% 10 Ml Syringe) 10 ml FLUSH ASDIRECTED PRN PRN Reason: Keep Vein Open Last Admin: 03/19/21 05:44 Dose: 10 ml Documented by: Tiotropium [place] (Tiotropium [place] 4 Gm Inhalation [place] (2.5mcg/1 Dose; 10 Doses)) 0 gm INH DAILY [facility] Last Admin: 03/19/21 07:56 Dose: 1 gm Documented by: - Exam General: Reports: Alert, Oriented, No Acute Distress HEENT: Reports: EOMI, Mucous Membr. Moist/[place] Neck: Reports: Supple Lungs: Reports: Decreased Breath Sounds (breath sounds distant throughout, wheezing and rhonchi improved) Cardiovascular: Reports: Regular Rate, Regular Rhythm GI/Abdominal Exam: Normal Bowel Sounds, Soft, Non-Tender Extremities: Normal Inspection Skin: Reports: Warm, Dry Neurological: Reports: No New Focal Deficit Psy/Mental Status: Reports: Alert, Normal Affect, Normal Mood
== END 2021-03-19 13:10 | disposition home or self-care (01) | DRG 192 ==
LOC: VM.MS 12:36
PROVIDERS: ADMIT Family Medicine; ATTEND Family Medicine
DX: J44.1 Chronic obstructive pulmonary disease with (acute) exacerbation (principal); Z20.822 Contact with and (suspected) exposure to COVID-19; Z91.09 Other allergy status, other than to drugs and biological substances; Z79.52 Long term (current) use of systemic steroids; Z79.899 Other long term (current) drug therapy; Z87.891 Personal history of nicotine dependence
CPT/HCPCS: 36415; 80048; 85025; 85027; 94640; A9270-GY; J0456; J0696; J1650; J2920; J7050; J7620-GY; U0002

== ENCOUNTER 2023-11-19 09:42 | Emergency (ER) | payer MEDICARE, BC ==
[2023-11-19] MEDS ORDERED: Lactated Ringers 1,000 ML IV ONE (10:53)
[2023-11-19 13:16] VITALS: BP 163/88; PULSE 74
== END 2023-11-19 10:17 | disposition home or self-care (01) ==
LOC: VM.ED 09:42
DX: J44.1 Chronic obstructive pulmonary disease with (acute) exacerbation (principal); Z91.09 Other allergy status, other than to drugs and biological substances; Z79.899 Other long term (current) drug therapy
CPT/HCPCS: 99283